=== PATIENT | female | born 1985 | race Caucasian/White ===

== ENCOUNTER 2023-04-27 11:56 | Emergency (ER) | payer MEDICAID ==
[~2023-04-27] VITALS: Ht 172.7 cm; Wt 85.0 kg
[2023-04-27 12:16] VITALS: TEMP 98.5
[2023-04-27] MEDS ORDERED: ipratropium/albuterol 3ml nebule NEB ONE (15:05)
[2023-04-27 15:26] LABS: URINE HCG NEGATIVE (NEG)
[2023-04-27 15:27] LABS: BASOPHILS % (AUTO) 0.2 % (0-1); BILIRUBIN,URINE NEGATIVE (Neg); CLARITY,URINE CLEAR (Clear); COLOR,URINE YELLOW (Yellow); EOSINOPHILS % (AUTO) 0.2 % (0-6); GLUCOSE, URINE NEGATIVE (Neg); HEMATOCRIT 39.4 % (35.0-45.0); HEMOGLOBIN 13.3 g/dl (12.0-16.0); KETONES,URINE 15 mg/dl (Neg); LEUKOCYTE ESTERASE ,URINE NEGATIVE (Neg); LYMPHOCYTES # (AUTO) 0.7 X10'3 (1.1-4.8); MEAN CORPUSCULAR HEMOGLOBIN 30.5 PG (27.0-31.0); MEAN CORPUSCULAR HGB CONC 33.6 g/dL (33.0-36.5); MEAN CORPUSCULAR VOLUME 90.6 FL (78-98); MONOCYTES # (AUTO) 0.6 X10'3 (0-0.9); MONOCYTES % (AUTO) 7.8 % (2-12); NEUTROPHILS # (AUTO) 6.9 X10'3 (1.8-7.7); NEUTROPHILS % (AUTO) 83.8 % (42-75); NITRITES, URINE NEGATIVE (Neg); OCCULT BLOOD,URINE MODERATE (Neg); PH,URINE 6.5 (4.8-8.0); PLATELET COUNT 230 X10'3 (140-440); PROTEIN,URINE NEGATIVE (Neg); RED BLOOD COUNT 4.35 X10'6 (4.20-5.60); RED CELL DISTRIBUTION WIDTH 13.6 % (11.5-14.5); UROBILINOGEN,URINE 0.2 E.U/dL (0.2-1.0); WHITE BLOOD COUNT 8.2 X10'3 (4.5-11.0)
[2023-04-27 15:29] LABS: UA COLLECTION TYPE CLN CATCH MIDSTREAM
[2023-04-27 15:31] VITALS: PULSE 85; PULSE 86; RESP 20; O2SAT 99
[2023-04-27 15:35] LABS: BACTERIA,URINE FEW /HPF (Neg); MUCUS STRANDS NONE SEEN /LPF (Neg); SQUAMOUS EPITHELIAL CELL,UR FEW /LPF (FEW); WBC,URINE 0-4 /HPF (0-4)
[2023-04-27 15:37] LABS: ALANINE AMINOTRANSFERASE 20 U/L (12-78); ALBUMIN 4.1 G/DL (3.4-5.0); ALKALINE PHOSPHATASE 66 IU/L (46-116); ANION GAP 10 (8-16); ASPARTATE AMINO TRANSFERASE 18 U/L (10-37); BILIRUBIN,TOTAL 0.3 MG/DL (0.1-1.0); BLOOD UREA NITROGEN 8 MG/DL (7-18); CALCIUM 8.9 MG/DL (8.5-10.1); CHLORIDE 102 MMOL/L (99-107); CREATININE 0.89 MG/DL (0.40-0.90); GLUCOSE 117 MG/DL (70-104); SODIUM 139 MMOL/L (135-145); TOTAL PROTEIN 8.2 G/DL (6.4-8.2); eCRCL 86 ML/MIN; eGFR 71 ML/MIN
[2023-04-27 15:51] LABS: POTASSIUM 2.9 MMOL/L (3.5-5.1)
[2023-04-27] MEDS ORDERED: potassium Cl 20 mEq SR tablet PO STA (16:01)
[2023-04-27 16:04] LABS: ABG BASE EXCESS -0.9 mmol/L (-2.0-2.0); ABG HCO3 21.2 mmol/L (22.0-26.0); ABG OXYGEN SATURATION 98.1 % (94-97); ABG PCO2 (T) 27.7 mmHg (32.0-45.0); ABG PO2 (T) 109.2 mmHg (75.0-100.0); ALLEN'S TEST POSITIVE; FCOHb 0.3 % (0.0-3.9); FHHb 1.9 % (0.0-5.0); FMetHb 0.5 % (0.0-1.5); FO2Hb 97.3 % (94-97); PATIENT TEMPERATURE 36.7; TOTAL HEMOGLOBIN 13.3 G/dl (12.0-16.0)
[2023-04-27 16:49] VITALS: BP 123/99; PULSE 94; RESP 15; O2SAT 97
== END 2023-04-27 18:16 | disposition home or self-care (01) ==
LOC: ER 11:57
DX: R06.02 Shortness of breath (principal); R19.7 Diarrhea, unspecified
CPT/HCPCS: 36415; 36600; 71046; 80053; 81001; 81025; 82803; 85018; 85025; 85379; 87811; 93005; 93971; 94640; 94760; 99285

== ENCOUNTER 2023-09-17 15:29 | Outpatient (CLI) | payer MEDICAID | END 2023-09-17 23:59 | disposition home or self-care (01) | LOC: RAD 15:29 | PROVIDERS: ATTEND Student in an Organized Health Care Education/Training Program | DX: N92.4 Excessive bleeding in the premenopausal period (principal) | CPT/HCPCS: 76830; 76856; 93976 ==